=== PATIENT | male | born 2000 | race Caucasian/White ===

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

== ENCOUNTER 2019-03-09 12:05 | Emergency (ER) | payer OTHER ==
[~2019-03-09] VITALS: Ht 170.2 cm; Wt 66.7 kg
[2019-03-09 12:08] VITALS: Ht 170.2 cm; Wt 66.7 kg
[2019-03-09 15:19] VITALS: BP 119/77
== END 2019-03-09 15:19 | disposition home or self-care (01) ==
LOC: ED 12:05
DX: G43.909 Migraine, unspecified, not intractable, without status migrainosus (principal)
CPT/HCPCS: J1885; J2765